=== PATIENT | female | born 1980 | race Caucasian/White ===

== ENCOUNTER 2019-03-10 23:36 | Emergency (ER) | payer BC ==
[~2019-03-10] VITALS: Ht 165.1 cm; Wt 70.5 kg
[2019-03-10 23:39] VITALS: Ht 165.1 cm; Wt 70.5 kg
[2019-03-10] MEDS ORDERED: FAMOTIDINE 20 MG INJ IV STA (23:49)
[2019-03-10] MEDS ORDERED: ALBUTEROL 0.083% (NEB) 2.5 MG/3 ML AMP INH STA (23:49)
[2019-03-10] MEDS ORDERED: EPINEPHrine 1 MG INJ IM STA (23:49)
[2019-03-10] MEDS ORDERED: IPRATROPIUM (NEB) 0.5 MG/2.5 ML AMP INH STA (23:49)
[2019-03-10] MEDS ORDERED: DIPHENHYDRAMINE 50 MG INJ IV STA (23:49)
[2019-03-10] MEDS ORDERED: METHYLPREDNISOLONE 125 MG INJ IV STA (23:49)
[2019-03-11] MEDS ORDERED: DIPHENHYDRAMINE 50 MG INJ IV PRN (01:00)
[2019-03-11] MEDS ORDERED: ALBUTEROL 0.083% (NEB) 2.5 MG/3 ML AMP HHN PRN (01:00)
[2019-03-11] MEDS ORDERED: FAMOTIDINE 20 MG INJ IV PRN (01:00)
[2019-03-11] MEDS ORDERED: ACETAMINOPHEN 325 MG TAB PO PRN ×2 (01:00)
[2019-03-11] MEDS ORDERED: NACL 0.9% 3 ML SYG IV SCH (01:00)
[2019-03-11] MEDS ORDERED: ONDANSETRON 4 MG INJ IV PRN ×2 (01:00)
--- NOTE | 2019-03-11 02:01 | ERD ---
ER Documentation Chief Complaint Chief Complaint RED RASIED RASH ON NECK WITH TONGUE FEELING MORE SWOLLEN HPI This is a 38-year-old female who has a rash on her neck with 20 feeling swollen. She was seen in urgent care earlier today for possible allergic reaction and given steroids and had resolution of symptoms but has since rebounded more severely. She says she feels mildly short of breath. She denies any difficulty tolerating secretions. Denies any other current issues. ROS All systems reviewed and are negative except as per history of present illness. PMhx/Soc Medical and Surgical Hx: pt denies Medical Hx Hx Alcohol Use: Yes (OCASSIONALLY) Hx Substance Use: No Hx Tobacco Use: No Smoking Status: Never smoker Physical Exam Vitals Vital Signs Date Temp Pulse Resp B/P (MAP) Pulse Ox O2 O2 Flow FiO2 Time Delivery Rate 03/11/19 82 20 100 21 00:42 03/10/19 85 24 127/87 100 Room Air 23:50 (100) 03/10/19 97.9 78 20 131/84 100 23:39 (100) Physical Exam Const: No acute distress Head: Atraumatic Eyes: Normal Conjunctiva ENT: Normal External Ears, Nose and Mouth. Neck: Full range of motion. No meningismus. Resp: Clear to auscultation bilaterally Cardio: Regular rate and rhythm, no murmurs Abd: Soft, non tender, non distended. Normal bowel sounds Skin: No petechiae or rashes Back: No midline or flank tenderness Ext: No cyanosis, or edema Neur: Awake and alert Psych: Normal Mood and Affect Result Diagram: 03/10/19 2357 03/10/19 2357 Results 24 hrs Laboratory Tests Test 03/10/19 23:57 03/11/19 01:22 White Blood Count 9.7 10^3/ul Red Blood Count 4.46 10^6/ul Hemoglobin 13.7 g/dl Hematocrit 40.5 % Mean Corpuscular Volume 90.8 fl Mean Corpuscular Hemoglobin 30.7 pg Mean Corpuscular Hemoglobin Concent 33.8 g/dl Red Cell Distribution Width 12.2 % Platelet Count 340 10^3/UL Mean Platelet Volume 9.6 fl Immature Granulocytes % 0.400 % Neutrophils % % Lymphocytes % % Monocytes % % Eosinophils % % Basophils % % Nucleated Red Blood Cells % 0.0 /100WBC Immature Granulocytes # 0.040 10^3/ul Neutrophils # 10^3/ul Lymphocytes # 10^3/ul Monocytes # 10^3/ul Eosinophils # 10^3/ul Basophils # 10^3/ul Nucleated Red Blood Cells # 10^3/ul Sodium Level 137 mmol/L Potassium Level 4.4 mmol/L Chloride Level 101 mmol/L Carbon Dioxide Level 27 mmol/L Anion Gap 9 Blood Urea Nitrogen 11 mg/dl Creatinine 0.83 mg/dl Est Glomerular Filtrat Rate mL/min > 60 mL/min Glucose Level 137 mg/dl Calcium Level 10.0 mg/dl POC Beta HCG, Qualitative NEGATIVE Current Medications Medications Dose Sig/Marylu Start Time Status Last (Trade) Ordered Route PRN Stop Time Admin Dose Reason Admin 50 mg ONCE STAT 03/10/19 DC 03/11/19 Diphenhydrami IV 23:49 00:00 ne HCl 03/10/19 23:50 (Benadryl) Epinephrine 0.3 mg ONCE STAT 03/10/19 DC 03/11/19 IM 23:49 00:01 (EPINEPHrine) 03/10/19 23:50 Famotidine 20 mg ONCE STAT 03/10/19 DC 03/11/19 (Pepcid Iv) IV 23:49 00:00 03/10/19 23:50 125 mg ONCE STAT 03/10/19 DC 03/11/19 Methylprednis IV 23:49 00:01 olone Sodium 03/10/19 23:50 Succinate (Solu-Medrol) Albuterol 5 mg ONCE STAT 03/10/19 DC 03/11/19 (Proventil INH 23:49 00:40 0.083% (Neb)) 03/10/19 23:51 Ipratropium 0.5 mg ONCE STAT 03/10/19 DC 03/11/19 [place] INH 23:49 00:40 (Atrovent 03/10/19 23:51 0.02% (Neb)) Ondansetron 4 mg ER BRIDGE 03/11/19 HCl (Zofran PRN IV 01:00 Inj) NAUSEA/VOMITI 03/12/19 00:59 NG 650 mg ER BRIDGE 03/11/19 Acetaminophen PRN PO 01:00 (Tylenol .MILD PAIN 03/12/19 00:59 Tab) 1-3 OR TEMP IV Flush 3 ml PER 03/11/19 UNV (NS 3 ml) PROTOCOL IV 01:00 Ondansetron 4 mg Q6H PRN 03/11/19 UNV HCl (Zofran IV 01:00 Inj) NAUSEA/VOMITI NG 650 mg Q6H PRN 03/11/19 UNV Acetaminophen PO .PAIN 1-3 01:00 (Tylenol OR TEMP Tab) Famotidine 20 mg Q12 PRN 03/11/19 UNV (Pepcid Iv) IV ALLERGIC 01:00 REACTION 50 mg Q6H PRN 03/11/19 UNV Diphenhydrami IV ALLERGIC 01:00 ne HCl REACTION (Benadryl) Albuterol 2.5 mg Q4H RESP 03/11/19 UNV (Proventil THERAPY PRN 01:00 0.083% (Neb)) HHN SHORTNESS OF BREATH Procedures/MDM Medical decision making: This very pleasant 38-year-old female looks to be having rebound anaphylaxis. Treated with epinephrine, steroids, Benadryl, fluids here in the emergency department with good response. Patient will be admitted for observation to Dr. Kat. Critical Care: Time: 45 minutes, independent of any separately billable procedural time Treatments/Evaluations: Close monitoring and treatment of unstable vital signs, cardiorespiratory, and neurologic status, while maintaining tight balance of fluid, respiratory, and cardiac interventions. Departure Diagnosis: Primary Impression: Acute anaphylaxis Encounter type: subsequent encounter Qualified Codes: T78.2XXD - Anaphylactic shock, unspecified, subsequent encounter Condition: Serious GERMAINE ROYAL Mar 11, 2019 02:01
[2019-03-11] MEDS ORDERED: METH4TAB10 PO (03:52)
[2019-03-11] MEDS ORDERED: ESCI10TA48 PO (03:52)
[2019-03-11] MEDS ORDERED: DIPH25CA6 PO (03:52)
[2019-03-11] MEDS ORDERED: BUPR300T4 PO (03:52)
[2019-03-11] MEDS ORDERED: CETI10TA34 PO (03:52)
[2019-03-11] MEDS ORDERED: METHYLPREDNISOLONE 40 MG INJ IV ONE (07:30)
[2019-03-11] MEDS ORDERED: SOD CHLORIDE 0.9% 500 ML IV ONE (07:30)
--- NOTE | 2019-03-11 07:43 | HP ---
Date/Time of Note Date/Time of Note DATE: 03/11/19 TIME: 07:30 Assessment/Plan VTE Prophylaxis SCD applied (from Nsg): Yes Pharmacological prophylaxis: NA/contraindicated Pharm contraindication: low risk/ambulating Lines/Catheters IV Catheter Type (from Nrsg): Saline Lock Assessment/Plan Hospital Course This is a 38-year-old female being admitted to the telemetry floor for observation for: #1 anaphylaxis: To be related to shellfish versus Bactrim. Patient presented with symptoms of hives/rash, shortness of breath and tongue swelling. She was given emergent treatment with epinephrine, Solu-Medrol, Benadryl, H2 endy. She has subsequently responded well. Given that she was already on steroids at home and she had a recurring reaction she was admitted for further observation. At the current time I will give her another dose of Solu-Medrol. I did discuss with her that if she is feeling better in the next couple of hours and does not have any recurring symptoms she could hopefully be able to be discharged later today. I think it would be good for her to be discharged on a Medrol Dosepak as well. I have expressed to her that I am unsure whether the shellfish she ate was a cause of this as she has been apparently eating these foods from the same place for years. It is possible that this could be Bactrim related. #2 anxiety: Continue patient's home medications on discharge #3 recent staph infection: Currently not on any antibiotics, she was taking Bactrim for this. It is unclear whether this Bactrim could have been the trigger for this recent reaction versus a shellfish. #4 DVT GI prophylaxis: SCDs, no GI prophylaxis indicated Further treatment strategy will be implemented as per the clinical course Result Diagram: 03/10/19235603/10/192356 Results 24hrs Laboratory Tests Test 03/10/19 23:57 03/11/19 01:22 White Blood Count 9.7 Red Blood Count 4.46 Hemoglobin 13.7 Hematocrit 40.5 Mean Corpuscular Volume 90.8 Mean Corpuscular Hemoglobin 30.7 Mean Corpuscular Hemoglobin Concent 33.8 Red Cell Distribution Width 12.2 Platelet Count 340 Mean Platelet Volume 9.6 Immature Granulocytes % 0.400 Neutrophils % Segmented Neutrophils % (Manual) 75 Lymphocytes % Lymphocytes % (Manual) 16 Monocytes % Monocytes % (Manual) 6 Eosinophils % Eosinophils % (Manual) 2 Basophils % Basophils % (Manual) 1 Nucleated Red Blood Cells % 0.0 Immature Granulocytes # 0.040 H Neutrophils # Lymphocytes (Manual) 1.5 Lymphocytes # Monocytes # Monocytes # (Manual) 0.5 Eosinophils # Basophils # Basophils # (Manual) 0.0 Nucleated Red Blood Cells # Platelet Estimate NORMAL Polychromasia 1+ Anisocytosis 1+ Sodium Level 137 Potassium Level 4.4 Chloride Level 101 Carbon Dioxide Level 27 Anion Gap 9 Blood Urea Nitrogen 11 Creatinine 0.83 Est Glomerular Filtrat Rate mL/min > 60 Glucose Level 137 Calcium Level 10.0 POC Beta HCG, Qualitative NEGATIVE HPI/ROS Admit Date/Time Admit Date/Time Hx of Present Illness Chief complaint: Shortness of breath, rash This is a 38-year-old female who presents to the emergency department with a rash on her neck and her tongue feeling swollen. Patient reports that she gave her yesterday and had gone to her regular [employer] restaurant. And ate scallops as well as other shellfish that she usually eats. She later on started developing hives all over her abdomen and lower body. She went to [facility] urgent care and was treated for an allergic reaction and given Medrol Dosepak. Patient states that then yesterday she started noticing hives from her shoulders up to her face. She felt hot on her neck and face. And she also felt short of breath and felt like her tongue was getting swollen. She was treated in the emergency department urgently with epinephrine, steroids, Benadryl and H2 blockers. Patient also reports that she was on Bactrim during this past week for a staph infection. She denies any previous reaction to shellfish. Allergies: Amoxicillin, cefaclor, hydromorphone Medications: Wellbutrin Lexapro Xanax ROS General: This is a pleasant female currently lying in bed in no acute distress HEENT: Atraumatic, normocephalic. The pupils are equal, round and reactive. Extraocular motor are intact, no stridor, Tongue does not appear to be swollen, patient is speaking clearly. Neck: Supple with full range of motion. No rigidity or meningismus Chest: Nontender Lungs: Clear to auscultation bilaterally no crackles rales or wheezing, nonlabored breathing Heart: Normal S1-S2, Regular rhythm and rate. No murmur, S3, or S4 Abdomen: Soft , nontender, nondistended , bowel sounds are present. No guarding no rebound tenderness , No masses or organomegaly. No costovertebral temporal angle mass Extremities: Normal to inspection, no edema no cyanosis Skin: No rashes or hives apparent, mild redness noted of the neck Neurologic: Normal mental status, speech normal, cranial nerves II through XII are intact, motor and sensory are intact, no focal weakness PMH/Family/Social Past Medical History Anxiety Medications Current Medications IV Flush (NS 3 ml) 3 ml PER PROTOCOL IV ; Start 03/11/19 at 01:00 Ondansetron HCl (Zofran Inj) 4 mg Q6H PRN IV NAUSEA/VOMITING; Start 03/11/19 at 01:00 Acetaminophen (Tylenol Tab) 650 mg Q6H PRN PO .PAIN 1-3 OR TEMP; Start 03/11/19 at 01:00 Famotidine (Pepcid Iv) 20 mg Q12H PRN IV ALLERGIC REACTION; Start 03/11/19 at 01:00 Diphenhydramine HCl (Benadryl) 50 mg Q6H PRN IV ALLERGIC REACTION; Start 03/11/19 at 01:00 Albuterol (Proventil 0.083% (Neb)) 2.5 mg Q4H RESP THERAPY PRN HHN SHORTNESS OF BREATH; Start 03/11/19 at 01:00 Coded Allergies: amoxicillin (Verified Allergy, Unknown, 03/11/19) cefaclor (Verified Allergy, Unknown, 03/11/19) hydromorphone (Verified Allergy, Unknown, 03/11/19) Past Surgical History [place] teeth surgery Family History Significant Family History: no pertinent family hx Social History Alcohol Use: none Smoking Status: Never smoker Drug Use: none Exam/Review of Systems Vital Signs Vitals Vital Signs Date Temp Pulse Resp B/P (MAP) Pulse Ox O2 O2 Flow FiO2 Time Delivery Rate 03/11/19 62 21 104/70 100 Room Air 05:00 (81) 03/11/19 21 00:42 03/10/19 97.9 23:39 JUAN A NARAYAN Mar 11, 2019 07:40
--- NOTE | 2019-03-11 10:40 | PDOCDIS ---
Discharge Instructions DIAGNOSIS Discharge Diagnosis Allergic reaction with hives and laryngeal edema CONDITION [id number] Patient Condition: [id number] Good HOME CARE INSTRUCTIONS: 2 [id number] Special Diet: [id number] gluten-free ACTIVITY: [id number] Activity Restrictions: [id number] No Restrictions FOLLOW UP/APPOINTMENTS Follow-up Plan 1. Continue taking solumedrol dose pack as prescribed; along with zyrtec and benadryl 2. Avoid anything containing gluten. 3. If you develop throat swelling or difficulty breathing, take epinephrine pen and come to the emergency room. 4. See your primary care doctor in 1-2 weeks. ANANT SPANGLER MD Mar 11, 2019 10:40
[2019-03-11 11:45] VITALS: BP 107/63; PULSE 56; RESP 18
--- NOTE | 2019-03-11 14:44 | DS ---
Date/Time of Note Date/Time of Note DATE: 03/11/19 TIME: 14:41 Discharge Summary Admission/Discharge Info Admit Date/Time 11 March 2019 Discharge Date/Time 11 March 2019 Discharge Diagnosis Allergic reaction with hives and laryngeal edema Patient Condition: Good Hx of Present Illness Chief complaint: Shortness of breath, rash This is a 38-year-old female who presents to the emergency department with a rash on her neck and her tongue feeling swollen. Patient reports that she gave her yesterday and had gone to her regular [employer] restaurant. And ate scallops as well as other shellfish that she usually eats. She later on started developing hives all over her abdomen and lower body. She went to [facility] urgent care and was treated for an allergic reaction and given Medrol Dosepak. Patient states that then yesterday she started noticing hives from her shoulders up to her face. She felt hot on her neck and face. And she also felt short of breath and felt like her tongue was getting swollen. She was treated in the emergency department urgently with epinephrine, steroids, Benadryl and H2 bl ockers. Patient also reports that she was on Bactrim during this past week for a staph infection. She denies any previous reaction to shellfish. Allergies: Amoxicillin, cefaclor, hydromorphone Medications: Wellbutrin Lexapro Xanax Hospital Course She got IM epinephrine as well as IV solumedrol with resolution of symptoms. She does still have some non-blanching red spots scattered across legs and chest when I saw her in the morning. However no more laryngeal edema, swelling of the face, or symptoms on the neck. The patient also reports she has Celiac disease but still eats gluten sometimes. I cautioned her to stop this. Also prescribed epinephrine autoinjector in case symptoms recur. Home Meds Reported Medications Diphenhydramine Hcl* (Diphenhydramine Hcl*) 25 Mg Capsule, 50 MG PO Q6 PRN for ITCHING, CAP 03/11/19 Cetirizine Hcl* (Cetirizine Hcl*) 10 Mg Tab.chew, 10 MG PO DAILY, #30 TAB 03/11/19 Escitalopram Oxalate* (Escitalopram Oxalate*) 10 Mg Tablet, 10 MG PO DAILY for 30 Days, #30 03/11/19 Bupropion Hcl* (Bupropion XL*) 300 Mg Tab.sr.24h, 300 MG PO DAILY for 30 Days, #30 03/11/19 Methylprednisolone (Methylprednisolone) 4 Mg Tab.ds.pk, 4 MG PO DAILY 03/11/19 Follow-up Plan 1. Continue taking solumedrol dose pack as prescribed; along with zyrtec and benadryl 2. Avoid anything containing gluten. 3. If you develop throat swelling or difficulty breathing, take epinephrine pen and come to the emergency room. 4. See your primary care doctor in 1-2 weeks. Primary Care Provider Not On Staff Doctor Time spent on discharge: > 30 minutes Pending Labs Laboratory Tests Test 03/10/19 23:57 03/11/19 01:22 White Blood Count 9.7 10^3/ul (4.8-10.8) Red Blood Count 4.46 10^6/ul (4.20-5.40) Hemoglobin 13.7 g/dl (12.0-16.0) Hematocrit 40.5 % (37.0-47.0) Mean Corpuscular Volume 90.8 fl (82.0-101.0) Mean Corpuscular Hemoglobin 30.7 pg (29.0-33.0) Mean Corpuscular 33.8 g/dl (32.0-37.0) Hemoglobin Concent Red Cell Distribution Width 12.2 % (11.5-14.5) Platelet Count 340 10^3/UL (140-415) Mean Platelet Volume 9.6 fl (7.4-10.4) Immature Granulocytes % 0.400 % (0.001-0.429) Neutrophils % % (39.0-77.0) Segmented Neutrophils % (Manual) 75 % (39-77) Lymphocytes % % (15.0-51.0) Lymphocytes % (Manual) 16 % (15-51) Monocytes % % (0.0-11.0) Monocytes % (Manual) 6 % (0-11) Eosinophils % % (0.0-7.0) Eosinophils % (Manual) 2 % (0-7) Basophils % % (0.0-2.0) Basophils % (Manual) 1 % (0-2) Nucleated Red Blood Cells % 0.0 /100WBC (0.0-0.0) Immature Granulocytes # 0.040 10^3/ul (0.0-0.031) Neutrophils # 10^3/ul (1.6-7.5) Lymphocytes (Manual) 1.5 10^3/ul (0.8-2.9) Lymphocytes # 10^3/ul (0.8-2.9) Monocytes # 10^3/ul (0.3-0.9) Monocytes # (Manual) 0.5 10^3/ul (0.3-0.9) Eosinophils # 10^3/ul (0.0-0.5) Basophils # 10^3/ul (0.0-0.1) Basophils # (Manual) 0.0 10^3/ul (0.0-0.0) Nucleated Red Blood Cells # 10^3/ul (0.0-0.0) Platelet Estimate NORMAL Polychromasia 1+ (0-0) Anisocytosis 1+ (0-0) Sodium Level 137 mmol/L (135-144) Potassium Level 4.4 mmol/L (3.5-5.1) Chloride Level 101 mmol/L (97-110) Carbon Dioxide Level 27 mmol/L (21-31) Anion Gap 9 (5-13) Blood Urea Nitrogen 11 mg/dl (7-20) Creatinine 0.83 mg/dl (0.44-1.00) Est Glomerular Filtrat > 60 mL/min (>60) Rate mL/min Glucose Level 137 mg/dl (70-220) Calcium Level 10.0 mg/dl (8.4-10.2) POC Beta HCG, Qualitative NEGATIVE (NEGATIVE) ANANT SPANGLER MD Mar 11, 2019 14:44
== END 2019-03-11 12:16 | disposition home or self-care (01) ==
LOC: E/R 23:36 → SUATTDRO 03-11 08:40 → E/R 03-11 12:16 → CANBEDREQ 03-11 19:21
PROVIDERS: ATTEND Internal Medicine
DX: T78.2XXD Anaphylactic shock, unspecified, subsequent encounter (principal); R06.02 Shortness of breath
CPT/HCPCS: 71045; 80048; 81025; 85025; 94664; 96372; 96374; 96375; 99291; J0171; J1200; J2920; J2930; J7040